=== PATIENT | female | born 1975 | race Caucasian/White ===

== ENCOUNTER 2018-12-13 13:04 | Outpatient (CLI) | payer MEDICAID ==
--- NOTE | 2018-12-13 14:36 | MMO ---
Bilateral MAMMO Bilat Diag [facility]. CLINICAL HISTORY: Patient is 43 years old and is seen for diagnostic exam,lump or thickening at 6 o'clock and pain in the right breast. The patient has no family history of breast cancer. The patient has no personal history of cancer. The patient has a history of right cyst aspiration in 2017. VIEWS: The views performed were: bilateral craniocaudal with tomosynthesis; bilateral mediolateral oblique with tomosynthesis; and bilateral mediolateral with tomosynthesis. FILMS COMPARED: The present examination has been compared to a prior imaging study performed at [facility] on 12/13/2018. MAMMOGRAM FINDINGS: The breasts are extremely dense, which may lower the sensitivity of mammography. There are no suspicious masses, calcifications or areas of architectural distortion. There are benign appearing calcifications in both breasts. Right breast US demonstrates a cyst. There are no suspicious masses, suspicious calcifications, or new areas of architectural distortion. IMPRESSION: THERE IS NO MAMMOGRAPHIC EVIDENCE OF MALIGNANCY. A ROUTINE FOLLOW-UP MAMMOGRAM IN 1 YEAR IS RECOMMENDED. THE RESULTS OF THIS EXAM WERE SENT TO THE PATIENT. ACR BI-RADS Category 2 - Benign finding MAMMOGRAPHY NOTE: 1. A negative mammogram report should not delay a biopsy if a dominant of clinically suspicious mass is present. 2. Approximately 10% to 15% of breast cancers are not detected by mammography. 3. Adenosis and dense breasts may obscure an underlying neoplasm. Reported by: SHAUN MCCLAIN MD Electonically Signed: [id number]
--- NOTE | 2018-12-13 16:14 | ULT ---
RIGHT BREAST ULTRASOUND: HISTORY: Palpable focus in the right breast. COMPARISON: None. TECHNIQUE: Targeted sonographic imaging of the right breast was performed at the 8 o'clock position, which corre sponds to the region of palpable abnormality. Static images were reviewed. FINDINGS: Static images at the 8 o'clock position demonstrate a well circumscribed, anechoic focus with posteri or acoustic enhancement, measuring 1.2 x 1.4 x 0.6 cm, compatible with a cyst. An incidental second cyst is noted at the 6 o'clock position, measuring 0.6 x 0.4 x 0.6 cm. IMPRESSION: BI-RADS category 2-Benign finding. RECOMMENDATIONS: Annual mammogram. POS: [facility]
== END 2018-12-13 13:05 | disposition home or self-care (01) ==
LOC: BICMAMMO 13:04
PROVIDERS: ATTEND Nurse Practitioner Women's Health
DX: N64.4 Mastodynia (principal); N63.14 Unspecified lump in the right breast, lower inner quadrant
CPT/HCPCS: 77066; G0279